=== PATIENT | female | born 1935 | race Caucasian/White ===

== ENCOUNTER 2024-01-16 08:15 | Inpatient (IN) ==
[2024-01-16] MEDS: Lactated Ringers 1000 ml BAG 1,000 ML IV ONE ×5 (09:05→16:45)
[2024-01-16 09:19] LABS: Activated Partial Thrombo Time 31.5 seconds (26.0-38.0); INR 1.27 (0.83-1.13)
[2024-01-16 09:43] LABS: Hematocrit 28.8 % (35-45); Hemoglobin 9.3 g/dL (11.5-14.3); Mean Corpuscular Hemoglobin 26.5 pg (27-33); Mean Corpuscular Hgb Conc 32.2 g/dL (31-36); Mean Corpuscular Volume 82.2 fL (80-97); Mean Platelet Volume 10.3 fL (7.5-11.2); Platelet Count 168 10^3/uL (150-450); Red Blood Count 3.51 10^6/uL (3.63-4.92); Red Cell Distribution Width 15.6 % (12-17); White Blood Count 25.4 10^3/uL (3.8-11.8)
[2024-01-16] MEDS: Piperacillin/Tazobac 3.375 BAG 3.375 GM/100 ML BAG IV ONE (09:54)
[2024-01-16 10:06] LABS: Albumin 3.1 g/dL (3.2-5.2); Albumin/Globulin Ratio 0.9 (1-3); C Reactive Protein 282.81 mg/L (<8.01); Creatinine, Serum 1.95 mg/dL (0.51-0.95); Globulin 3.6 g/dL (2-4); Potassium 4.3 mmol/L (3.5-5.0); Total Bilirubin 0.7 mg/dL (0.2-1.0); Total Protein 6.7 g/dL (6.4-8.9); eGFR CKD-EPI 24.5 (>60)
[2024-01-16 10:26] LABS: ABS Basophils 0.1 10^3/uL (0.0-0.1); ABS Lymphocytes 0.2 10^3/uL (1.0-4.8); ABS Monocytes 0.7 10^3/uL (0.0-0.9); ABS Neutrophils 24.3 10^3/uL (1.5-7.6); Eosinophil % 0.2 %
[2024-01-16 10:58] LABS: High Sensitivity Troponin 1 Hr 716 pg/mL (<15)
[2024-01-16 11:41] LABS: Urine Appearance Turbid; Urine Bilirubin Negative (Negative); Urine Blood 1+ (Negative); Urine Color Yellow; Urine Glucose Negative (Negative); Urine Ketones Negative (Negative); Urine Nitrite Negative (Negative); Urine Protein 1+ (>=30 mg/dL) (Negative); Urine Specific Gravity 1.017 (1.002-1.030); Urine Urobilinogen Negative (Negative)
[2024-01-16 12:44] LABS: Urine Bacteria 3+ /HPF (Absent); Urine Red Blood Cell 2+(6-10/hpf) /HPF (0-Trace); Urine Squamous Epithelial Cell Present /HPF (Absent); Urine White Blood Cell 3+(>20/hpf) /HPF (0-Trace)
[2024-01-16] MEDS ORDERED: Lactated Ringers 1000 ml BAG 1,000 ML IV SCH (13:00)
[2024-01-16] MEDS ORDERED: Ondansetron 4 mg VIAL 2 MG/ML 2 ml VIAL IV PRN (13:49)
[2024-01-16] MEDS: Lactated Ringers 1000 ml BAG 1,000 ML IV SCH ×2 (15:39→21:17)
[2024-01-16 16:21] LABS: ABS Lymphocytes 0.3 10^3/uL (1.0-4.8); ABS Monocytes 0.4 10^3/uL (0.0-0.9); ABS Nucleated RBC 0.01 10^3/ul; Eosinophil % 0.1 %; Hematocrit 35.4 % (35-45); Hemoglobin 10.6 g/dL (11.5-14.3); Lymphocyte % 1.7 %; Mean Corpuscular Hemoglobin 26.7 pg (27-33); Mean Corpuscular Hgb Conc 29.9 g/dL (31-36); Mean Corpuscular Volume 89.4 fL (80-97); Mean Platelet Volume 9.8 fL (7.5-11.2); Platelet Count 138 10^3/uL (150-450); Red Blood Count 3.96 10^6/uL (3.63-4.92); Red Cell Distribution Width 17.2 % (12-17); White Blood Count 19.8 10^3/uL (3.8-11.8)
[2024-01-16 16:49] LABS: Calcium 8.7 mg/dL (8.6-10.3); Creatinine, Serum 1.87 mg/dL (0.51-0.95); Potassium 4.4 mmol/L (3.5-5.0); eGFR CKD-EPI 25.7 (>60)
[2024-01-16] MEDS ORDERED: Zosyn per Pharmacy NOTE FOLLOW UP SCH (17:00)
[2024-01-16] MEDS: ZOSYN 3.375 GM Q12H per EXTENDED INFUSION IV SCH (18:35)
[2024-01-16] MEDS: Metoprolol Tartrate 5 mg VIAL 5 ml VIAL (1 mg/ml) IV PRN (19:47)
[2024-01-16] MEDS ORDERED: Vancomycin per Pharmacy 1 EA NOTE FOLLOW UP SCH (21:00)
[2024-01-16] MEDS: Vancomycin 1,250 MG in NS 0.9% 250 ml 250 ML IVPB ONE (21:17)
[2024-01-16] MEDS: Metoprolol Tartrate 5 mg VIAL 5 ml VIAL (1 mg/ml) IV ONE (22:49)
[2024-01-17 06:57] LABS: Hematocrit 26.3 % (35-45); Hemoglobin 8.7 g/dL (11.5-14.3); Mean Corpuscular Hemoglobin 26.8 pg (27-33); Mean Corpuscular Hgb Conc 33.1 g/dL (31-36); Mean Corpuscular Volume 81.1 fL (80-97); Mean Platelet Volume 10.5 fL (7.5-11.2); Platelet Count 83 10^3/uL (150-450); Red Blood Count 3.24 10^6/uL (3.63-4.92); Red Cell Distribution Width 15.6 % (12-17); White Blood Count 22.3 10^3/uL (3.8-11.8)
[2024-01-17 07:16] LABS: Calcium 8.1 mg/dL (8.6-10.3); Creatinine, Serum 2.29 mg/dL (0.51-0.95); Potassium 4.2 mmol/L (3.5-5.0); eGFR CKD-EPI 20.2 (>60)
[2024-01-17 07:25] LABS: ABS Lymphocytes 0.5 10^3/uL (1.0-4.8); ABS Monocytes 1.3 10^3/uL (0.0-0.9); ABS Neutrophils 20.5 10^3/uL (1.5-7.6); ABS Nucleated RBC 0.01 10^3/ul; Eosinophil % 0.1 %; Lymphocyte % 2.1 %
[2024-01-17] MEDS: Vancomycin Random Level NOTE FOLLOW UP ONE (08:37)
[2024-01-17] MEDS: Lactated Ringers 1000 ml BAG 1,000 ML IV SCH (08:38)
[2024-01-17] MEDS: Lactated Ringers 1000 ml BAG 1,000 ML IV ONE ×3 (10:01→16:57)
[2024-01-17] MEDS: Vancomycin 1000 MG in NS 0.9% 250 ML IVPB ONE (11:32)
[2024-01-17] MEDS ORDERED: Sulfur Hexaflouride MICROSPHR 25 MG VIAL ONE (14:22)
[2024-01-18] MEDS ORDERED: Lactated Ringers 1000 ml BAG 1,000 ML IV ONE (00:17)
[2024-01-18] MEDS: NS 0.9% 1,000 ML IV ONE (00:17)
[2024-01-18 00:46] LABS: Hemoglobin 8.9 g/dL (11.5-14.3); Mean Corpuscular Hemoglobin 26.6 pg (27-33); Mean Corpuscular Hgb Conc 32.8 g/dL (31-36); Mean Corpuscular Volume 81.1 fL (80-97); Mean Platelet Volume 10.4 fL (7.5-11.2); Platelet Count 93 10^3/uL (150-450); Red Blood Count 3.33 10^6/uL (3.63-4.92); Red Cell Distribution Width 16.1 % (12-17); White Blood Count 21.9 10^3/uL (3.8-11.8)
[2024-01-18 01:09] LABS: ABS Basophils 0.1 10^3/uL (0.0-0.1); ABS Eosinophils 0.5 10^3/uL (0.0-0.5); ABS Lymphocytes 0.3 10^3/uL (1.0-4.8); ABS Monocytes 0.8 10^3/uL (0.0-0.9); ABS Neutrophils 20.1 10^3/uL (1.5-7.6); ABS Nucleated RBC 0.05 10^3/ul; Eosinophil % 2.4 %; Lymphocyte % 1.5 %; Nucleated Red Blood Cells % 0.2 %/100WBC (0.0-0.8)
[2024-01-18 01:25] LABS: Albumin 2.4 g/dL (3.2-5.2); Albumin/Globulin Ratio 0.8 (1-3); C Reactive Protein 247.35 mg/L (<8.01); Calcium 7.5 mg/dL (8.6-10.3); Creatinine, Serum 2.35 mg/dL (0.51-0.95); Globulin 2.9 g/dL (2-4); Potassium 4.2 mmol/L (3.5-5.0); Total Bilirubin 0.6 mg/dL (0.2-1.0); Total Protein 5.3 g/dL (6.4-8.9); eGFR CKD-EPI 19.6 (>60)
[2024-01-18] MEDS: Lactated Ringers 1000 ml BAG 1,000 ML IV ONE (01:39)
[2024-01-18 01:58] LABS: Erythrocyte Sed Rate 65 mm/Hr (0-29)
[2024-01-18] MEDS: Norepinephrine 4 MG/250mL D5W 4,000 MCG/250 ML BAG IV ONE (02:52)
[2024-01-18] MEDS: Norepinephrine 4 MG/250mL D5W 4,000 MCG/250 ML BAG IV SCH (02:54)
[2024-01-18] MEDS ORDERED: LACTATED RINGERS 1000 ML BAG IV ONE (03:00)
[2024-01-18 03:28] LABS: Magnesium 1.8 mg/dL (1.9-2.7)
[2024-01-18 03:46] LABS: Urine Appearance Extra Turbid; Urine Bilirubin Negative (Negative); Urine Blood Trace (Negative); Urine Color Yellow; Urine Glucose Negative (Negative); Urine Ketones Trace (Negative); Urine Nitrite Negative (Negative); Urine Protein 1+ (>=30 mg/dL) (Negative); Urine Specific Gravity 1.027 (1.002-1.030); Urine Urobilinogen Negative (Negative)
[2024-01-18] MEDS: Furosemide 40 mg/4 ml IV VIAL IV SLOW PU ONE ×2 (03:49→16:09)
[2024-01-18 03:55] LABS: Urine Bacteria 1+ /HPF (Absent); Urine Red Blood Cell 2+(6-10/hpf) /HPF (0-Trace); Urine Squamous Epithelial Cell Present /HPF (Absent); Urine White Blood Cell 3+(>20/hpf) /HPF (0-Trace)
[2024-01-18 04:28] LABS: Hematocrit 27.3 % (35-45); Hemoglobin 8.9 g/dL (11.5-14.3); Mean Corpuscular Hemoglobin 26.4 pg (27-33); Mean Corpuscular Hgb Conc 32.5 g/dL (31-36); Mean Corpuscular Volume 81.3 fL (80-97); Platelet Count 108 10^3/uL (150-450); Red Blood Count 3.36 10^6/uL (3.63-4.92); Red Cell Distribution Width 16.1 % (12-17); White Blood Count 29.4 10^3/uL (3.8-11.8)
[2024-01-18 04:30] LABS: ABS Lymphocytes 0.6 10^3/uL (1.0-4.8); ABS Monocytes 1.5 10^3/uL (0.0-0.9); ABS Neutrophils 26.3 10^3/uL (1.5-7.6); ABS Nucleated RBC 0.02 10^3/ul; Eosinophil % 3.3 %; Nucleated Red Blood Cells % 0.1 %/100WBC (0.0-0.8)
[2024-01-18] MEDS: Pantoprazole 80 mg in NS BAG 80 MG/250 ML BAG IV SCH (04:34)
[2024-01-18] MEDS: Magnesium Sulfate 2 gm BAG 2 GM/50 ML BAG IVPB ONE (04:39)
[2024-01-18 05:20] LABS: Calcium 7.6 mg/dL (8.6-10.3); Creatinine, Serum 2.37 mg/dL (0.51-0.95); Potassium 4.3 mmol/L (3.5-5.0); eGFR CKD-EPI 19.4 (>60)
[2024-01-18] MEDS: Metoprolol Tartrate 5 mg VIAL 5 ml VIAL (1 mg/ml) IV ONE (07:03)
[2024-01-18] MEDS: Vancomycin Random Level NOTE FOLLOW UP ONE (07:53)
[2024-01-18] MEDS ORDERED: Zosyn per Pharmacy NOTE FOLLOW UP SCH (09:00)
[2024-01-18] MEDS: ZOSYN 3.375 GM x ONE DOSE over 30 miuntes IV (09:03)
[2024-01-18] MEDS ORDERED: Acetaminophen IV 1 GM/100ML 1,000 MG/100 ML BAG IV PRN (10:06)
[2024-01-18] MEDS: Vancomycin 1000 MG in NS 0.9% 250 ML IVPB ONE (13:23)
[2024-01-18] MEDS: ZOSYN 3.375 GM Q12H per EXTENDED INFUSION IV SCH (15:03)
[2024-01-18] MEDS: Acetaminophen IV 1 GM/100ML 1,000 MG/100 ML BAG IV PRN (15:05)
[2024-01-18] MEDS: Furosemide 40 mg/4 ml IV VIAL ONE (16:35)
[2024-01-18] MEDS: HYDROmorphone 0.5 MG/0.5 ML SYRINGE IV PRN (19:44)
[2024-01-18] MEDS: Heparin 5000 UNITS/ML 1 mL VIAL SUBCUT SCH (21:10)
[2024-01-18] MEDS: Pantoprazole VIAL 40 MG VIAL IV SCH (21:10)
[2024-01-19 04:52] LABS: Hemoglobin 8.6 g/dL (11.5-14.3); Mean Corpuscular Hemoglobin 26.4 pg (27-33); Mean Corpuscular Volume 82.4 fL (80-97); Red Blood Count 3.28 10^6/uL (3.63-4.92)
[2024-01-19 06:13] LABS: Calcium 7.5 mg/dL (8.6-10.3); Creatinine, Serum 2.7 mg/dL (0.51-0.95); Magnesium 2.4 mg/dL (1.9-2.7); Potassium 4.1 mmol/L (3.5-5.0); Vancomycin Random 22.3 mcg/mL; eGFR CKD-EPI 16.6 (>60)
[2024-01-19] MEDS: Vancomycin Random Level NOTE FOLLOW UP ONE (07:20)
[2024-01-19 07:23] LABS: ABS Basophils 0.1 10^3/uL (0.0-0.1); ABS Eosinophils 0.5 10^3/uL (0.0-0.5); ABS Lymphocytes 0.5 10^3/uL (1.0-4.8); ABS Nucleated RBC 0.02 10^3/ul; Eosinophil % 1.9 %; Lymphocyte % 2.2 %; Mean Platelet Volume 10.4 fL (7.5-11.2); Nucleated Red Blood Cells % 0.1 %/100WBC (0.0-0.8); Platelet Count 81 10^3/uL (150-450)
[2024-01-19] MEDS: HYDROmorphone PCA 20 MG/20 ML PCA.SYRING PCA SCH (10:01)
[2024-01-19] MEDS: Alteplase (CATHFLO) 2 MG VIAL IV ONE (22:19)
[2024-01-20] MEDS ORDERED: LORazepam 2 mg VIAL 1 ml IV PUSH PRN (07:23)
[2024-01-20] MEDS: Vancomycin Random Level NOTE FOLLOW UP ONE (08:01)
[2024-01-20] MEDS: Atropine 1% (ORAL/SL) 15 ML BTL SL PRN (08:42)
[2024-01-20] MEDS: Morphine 2 MG/ML SYRINGE IV PRN (09:07)
[2024-01-20] MEDS ORDERED: Haloperidol 5 mg/ml SDV IV/IM 5 MG/ML AMP IV SLOW PU PRN (09:13)
[2024-01-20] MEDS: Midazolam 2 mg/2 ml VIAL 1 mg/ml 2 ml VIAL (2 mg) IV SLOW PU PRN (09:52)
[2024-01-20 10:33] VITALS: BP 38/25
== END 2024-01-20 10:10 | disposition expired | DRG 871 ==
LOC: ED 08:15 → EDHOLD 08:15 → MED 13:55 → ICU 14:19 → SUATTDRO 01-17 09:38 → ICU 01-18 02:01
PROVIDERS: ADMIT Hospitalist; ATTEND Student in an Organized Health Care Education/Training Program